=== PATIENT | male | born 1960 | race African-American/Black ===

== ENCOUNTER 2018-04-16 10:00 | Emergency (ER) | payer MEDICAID ==
[~2018-04-16] VITALS: Ht 180.3 cm; Wt 83.9 kg
[~2018-04-16 10:00] MED LIST: DILANTIN30 MG ORAL
[2018-04-16 10:05] VITALS: BP 142/102
[2018-04-16] MEDS ORDERED: Acetaminophen 500mg (ES) tab ORAL ONE (10:45)
[2018-04-16] MEDS ORDERED: Morphine Sulfate 2mg/ml Inj IM ONE (10:45)
[2018-04-16] MEDS ORDERED: Norco 5mg/325mg tab ORAL ONE (11:15)
[2018-04-16 12:24] VITALS: BP 146/95
--- NOTE | 2018-04-16 14:12 | Emergency Room Report ---
History of Present Illness General Chief Complaint: Pain Source: Patient Present Illness HPI 57-year-old male presents ED complaining of back pain. Came in by ambulance. Notes history of chronic back pain got worse for the last 2 days. Is scheduled to have epidural done at an outside clinic. Pain is 10 out of 10, sharp, radiating down left leg. Denies any bowel or bladder incontinence. No other aggravating relieving factors. Denies any other associated symptoms Allergies: Coded Allergies: KETOROLAC (Verified Allergy, Unknown, 12/07/15) Patient History Past Medical History: HTN, seizures Past Surgical History: none Pertinent Family History: none Social History: Denies: smoking, alcohol use, drug use Immunizations: UTD Reviewed Nursing Documentation: PMH: Agreed; PSxH: Agreed Nursing Documentation-PMH Past Medical History: No History, Except For Hx Hypertension: Yes Hx Seizures: Yes Review of Systems All Other Systems: negative except mentioned in HPI Physical Exam Vital Signs Date Time Temp Pulse Resp B/P (MAP) Pulse Ox O2 Delivery O2 Flow Rate FiO2 04/16/18 09:55 97.9 81 16 129/85 99 Room Air 97.9 Sp02 EP Interpretation: reviewed, normal General Appearance: no apparent distress, alert, GCS 15, non-toxic Head: normocephalic Eyes: bilateral eye normal inspection, bilateral eye PERRL ENT: normal ENT inspection Neck: normal inspection Respiratory: normal inspection Cardiovascular #1: normal inspection Gastrointestinal: normal inspection Rectal: deferred Genitourinary: no CVA tenderness Musculoskeletal: tender - paraspinal lumbar tenderness Neurologic: alert, oriented x3, responsive, motor strength/tone normal, sensory intact, speech normal Psychiatric: normal inspection Skin: normal inspection Lymphatic: normal inspection Medical Decision Making Diagnostic Impression: Primary Impression: Chronic pain Qualified Codes: G89.4 - Chronic pain syndrome ER Course Hospital Course 57-year-old male presents ED complaining of lower back pain. Differential diagnoses include: pyelonephritis, kidney stone, muscle strain, Lspine fracture Clinical course Patient placed on stretcher. After initial history and physical exam reveals a middle-aged male in no acute distress. There is no vertebral body tenderness. There is pain to the paraspinal lumbar region on the left. Positive straight leg raise. Patient given accommodation pain medications here with symptoms improved. Patient observed walking in ED. Patient is safe for discharge. Recommend that patient have his epidural injection soon in the outpatient setting Diagnosis - chronic pain Stable and discharged to home. Followup with PMD. Return to ED if symptoms recur or worsen Last Vital Signs Date Time Temp Pulse Resp B/P (MAP) Pulse Ox O2 Delivery O2 Flow Rate FiO2 04/16/18 12:24 98.0 87 20 146/95 100 Room Air 98.0 Status: improved Disposition: HOME, SELF-CARE Condition: Stable Patient Instructions: Chronic Pain Christophe Campbell MD Apr 16, 2018 14:12
== END 2018-04-16 12:29 | disposition home or self-care (01) ==
LOC: EDBD 10:00 → EMR 10:55
DX: G89.29 Other chronic pain (principal); M54.5 Low back pain; I10 Essential (primary) hypertension; Z86.69 Personal history of other diseases of the nervous system and sense organs
CPT/HCPCS: 96372; 99283; J2270

== ENCOUNTER 2018-09-28 13:07 | Emergency (ER) | payer MEDICAID ==
[~2018-09-28] VITALS: Ht 172.7 cm; Wt 72.6 kg
[2018-09-28 13:14] VITALS: BP 151/89
[2018-09-28] MEDS ORDERED: Acetaminophen 500mg (ES) tab ORAL ONE (13:45)
[2018-09-28 14:06] LABS: BASOPHILS % (AUTO) 1.4 % (0.0-2.0); HEMATOCRIT 42.2 % (42.0-52.0); HEMOGLOBIN 14.5 G/DL (14.2-18.0); LYMPHOCYTES % (AUTO) 47.8 % (20.0-45.0); MEAN CORPUSCULAR VOLUME 94 FL (80-99); MONOCYTES % (AUTO) 11.2 % (1.0-10.0); NEUTROPHILS % (AUTO) 35.6 % (45.0-75.0); PLATELET COUNT 165 K/UL (150-450); RED BLOOD COUNT 4.51 M/UL (4.70-6.10); RED CELL DISTRIBUTION WIDTH 10.9 % (11.6-14.8)
[2018-09-28] MEDS ORDERED: Morphine Sulfate 4mg/ml Inj (IV/IM USE ONLY) IVP ONE (14:15)
[2018-09-28 14:27] LABS: ANION GAP 9 mmol/L (5-15); BLOOD UREA NITROGEN 20 mg/dL (7-18); CALCIUM 8.8 MG/DL (8.5-10.1); CARBON DIOXIDE 26 MMOL/L (21-32); CHLORIDE 104 MMOL/L (98-107); CREATININE 0.9 MG/DL (0.55-1.30); POTASSIUM 4.1 MMOL/L (3.5-5.1); SODIUM 139 MMOL/L (136-145)
[2018-09-28 14:41] LABS: ALANINE AMINOTRANSFERASE 58 U/L (12-78); ALBUMIN 3.3 G/DL (3.4-5.0); ALBUMIN/GLOBULIN RATIO 0.7 (1.0-2.7); ALKALINE PHOSPHATASE 113 U/L (46-116); ASPARTATE AMINO TRANSFERASE 30 U/L (15-37); BILIRUBIN,TOTAL 0.2 MG/DL (0.2-1.0); CKMB 4.7 NG/ML (0.0-3.6); CREATINE KINASE 218 U/L (26-308)
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
[2018-09-28 15:26] VITALS: BP 128/87
[2018-09-28 15:26] LABS: APPEARANCE,URINE CLEAR; BILIRUBIN, URINE NEGATIVE (NEGATIVE); COLOR,URINE PALE YELLOW; GLUCOSE, URINE (UA) NEGATIVE (NEGATIVE); KETONES,URINE NEGATIVE (NEGATIVE); LEUKOCYTE ESTERASE ,URINE 1+ (NEGATIVE); NITRITE,URINE NEGATIVE (NEGATIVE); PH,URINE 7 (4.5-8.0); PROTEIN,URINE NEGATIVE (NEGATIVE); UROBILINOGEN,URINE NORMAL MG/DL (0.0-1.0)
--- NOTE | 2018-09-29 16:02 | Cardiology Report ---
APPROVED REPORT EKG Measurement Heart [id number] Normal sinus rhythm Nonspecific T wave abnormality Abnormal ECG
== END 2018-09-28 15:30 | disposition home or self-care (01) ==
LOC: EDBD 13:07 → EMR 13:35
DX: G89.29 Other chronic pain (principal); I10 Essential (primary) hypertension; Z88.8 Allergy status to other drugs, medicaments and biological substances
CPT/HCPCS: 36415; 80053; 80307; 81003; 82550; 82553; 84484; 85025; 93005; 96361; 96374; 99284; J2270